=== PATIENT | male | born 2000 | race Caucasian/White ===

== ENCOUNTER 2020-12-26 12:02 | Emergency (ER) | payer OTHER, SELFPAY ==
--- NOTE | 2020-12-26 12:04 | ED.UPPEXIN ---
HPI - Extremity Injury (Upper) General Chief Complaint: Extremity Injury, Upper Stated Complaint: left shoulder pain Time Seen by Provider: 12/26/20 12:06 Source: patient and RN notes reviewed History of Present Illness HPI narrative: Patient is a 20-year-old male who presents the urgent care with complaints of left shoulder pain. Patient states that his pain started 7 days ago and he noticed the rash approximately 3 days ago. Patient denies of any injury or trauma to the shoulder or arm. Patient states that it is burning and radiating all the way down the left arm. Patient has used hydrocortisone cream to the rash. No other acute complaints. No acute distress noted. Patient aware of the plan of care. Some parts of this dictation were generated by voice recognition software and may contain typographical and/or grammatical inaccuracies. Related Data Allergies Allergy/AdvReac Type Severity Reaction Status Date / Time No Known Allergies Allergy Verified 12/26/20 12:16 Review of Systems Review of Systems: CONSTITUTIONAL: Denies fever, chills, or sweats. EYES: Denies visual changes, redness, or discharge. ENT: Denies rhinorrhea, congestion, sore throat, or otalgia. CARDIOVASCULAR: Denies chest pain, palpitations, or edema. RESPIRATORY: Denies cough or dyspnea. GASTROINTESTINAL: Denies abdominal pain, nausea, vomiting, or diarrhea. GENITOURINARY: Denies dysuria or hematuria. SKIN: Reports a painful itchy rash to the left arm MUSCULOSKELETAL: Reports of left shoulder pain rating down the left arm NEUROLOGIC: Denies headache, numbness, or weakness. All other systems reviewed are negative, except as documented in HPI. PMFSH Comments At the time of my signature, I reviewed and agree with the nursing past medical, surgical, social, and family history. There is no relevant family history pertinent to the patient complaint. Exam Narrative: GENERAL: This is a well-nourished, well-developed patient, in no apparent distress. HEAD: normocephalic, atraumatic. EYES: PERRL. Sclera clear/white. Vision is grossly intact. EARS: External ears normal NOSE: External nose normal with no obvious nasal discharge, nares without redness, no rhinorrhea. THROAT: Mucous membranes moist NECK: Neck supple CARDIOVASCULAR: Regular rate and rhythm without murmurs, gallops, or rubs. RESPIRATORY: Clear to auscultation. Breath sounds equal bilaterally. No wheezes, rales, or rhonchi. SKIN: Vesicular dermatitis, new areas and dried areas, diffuse to the left inner arm NEURO: awake, alert, and oriented to person, place and time. There were no obvious focal neurologic abnormalities. EXTREMITIES: No clubbing, cyanosis, or edema. Course Vital Signs Vital signs: Vital Signs Temperature 98.8 F 12/26/20 12:08 Pulse Rate 73 12/26/20 12:08 Respiratory Rate 16 12/26/20 12:08 Blood Pressure 143/70 H 12/26/20 12:08 Pulse Oximetry 100 12/26/20 12:08 Temperature 98.8 F 12/26/20 12:17 Pulse Rate 73 12/26/20 12:17 Respiratory Rate 16 12/26/20 12:17 Blood Pressure 143/70 H 12/26/20 12:17 Pulse Oximetry 100 12/26/20 12:17 Reviewed-patient is informed that they may have pre-hypertension or hypertension based on a blood pressure reading in the department. I recommend the patient call the primary care provider listed on their discharge instructions or a physician of their choice this week to arrange follow-up for further evaluation of possible pre-hypertension or hypertension. MDM - Extremity Injury (Upper) MDM Narrative Medical decision making narrative: Advised the patient to complete the antiviral regimen as prescribed. Make sure you are eating and drinking with the medication to avoid nausea or vomiting. If you notice new areas of the rash after the 7-day regimen, obtain the refill of the medication and take for another 7 days. May continue to use hydrocortisone or antiitch cream as needed. Use cool wash rags for comfort. May use Tylenol
[2020-12-26 12:08] VITALS: BP 143/70; PULSE 73; RESP 16; TEMP 37.1; O2SAT 100
[2020-12-26 12:17] VITALS: BP 143/70; PULSE 73; RESP 16; TEMP 37.1; O2SAT 100
== END 2020-12-26 12:29 | disposition home or self-care (01) ==
PROVIDERS: Emergency Provider Nurse Practitioner Family; PCP Pediatrics
DX: B02.9 Zoster without complications (principal)
CPT/HCPCS: 99203; G0463

== ENCOUNTER 2021-10-14 09:39 | Emergency (ER) | payer OTHER, SELFPAY ==
--- NOTE | ~2021-10-14 | XR_ITS ---
EXAMINATION: XR ankle RT min 3V INDICATION: Right ankle pain TECHNIQUE: Four views of the right ankle are obtained. COMPARISON: None available FINDINGS: There is no fracture, dislocation, or subluxation. The bones and joint spaces are normal. T here is lateral soft tissue swelling of ankle. IMPRESSION: 1. Ankle soft tissue swelling without acute osseous abnormality. Reviewed, dictated and finalized at location B.
[2021-10-14 09:42] VITALS: BP 133/82; PULSE 84; RESP 18; TEMP 37.1; O2SAT 100
--- NOTE | 2021-10-14 10:08 | ED.LOWEXIN ---
HPI - Extremity Injury (Lower) General Chief Complaint: Extremity Injury, Lower Stated Complaint: rt ankle injury Time Seen by Provider: 10/14/21 09:55 Source: patient Mode of arrival: ambulatory Limitations: no limitations History of Present Illness HPI Narrative: 21 y/o male presented for c/o right ankle pain and swelling after injury last night. Pain to the lateral aspect of the ankle. He jumped off of a boat landing on the ground twisting the ankle inverting the foot. Took tylenol last night. Related Data Allergies Allergy/AdvReac Type Severity Reaction Status Date / Time No Known Allergies Allergy Verified 12/26/20 12:16 Review of Systems Review of Systems: CONSTITUTIONAL: Denies body aches, fever, chills CARDIOVASCULAR: Denies chest pain, palpitations, or edema. RESPIRATORY: Denies cough or dyspnea. SKIN: Denies rash, itching, or wounds. MUSCULOSKELETAL: Reports right ankle pain NEUROLOGIC: Denies headache, numbness, tingling, or weakness. All systems reviewed & are unremarkable except as noted in HPI and below PMFSH Comments At time of signature, I have reviewed and agree with nursing past medical, surgical, social and family history unless otherwise noted. Please see nursing chart for further information. There is no relevant family history pertinent to the presenting complaint Exam Narrative: GENERAL: Well-appearing CHEST: Speaks in full sentences. No respiratory distress. HEART: Regular rate and rhythm. Normal and equal peripheral pulses. EXTREMITIES: Right lateral ankle with moderate swelling and bruising, tender to palpation; foot has normal strength and sensation, limited range of motion No open wounds or obvious deformity; pulse palpable and equal bilaterally, skin warm, dry, pink. Capillary refill less than 3 seconds. SKIN: Warm, dry, no rash. NEURO: Alert and oriented x3. PSYCH: Normal mood and affect Course Course Emergency Course: Patient is aware of diagnosis, understands and agrees to treatment plan. Anticipatory guidance given. Patient agrees to follow-up as directed and is aware of reasons to seek care at the emergency department. Portions of this record may have been created with voice recognition software Level of Care: Express Care Visit Vital Signs Vital signs: Vital Signs Temperature 98.7 F 10/14/21 09:42 Pulse Rate 84 10/14/21 09:42 Respiratory Rate 18 10/14/21 09:42 Blood Pressure 133/82 10/14/21 09:42 Pulse Oximetry 100 10/14/21 09:42 Oxygen Delivery Room Air 10/14/21 09:42 Temperature 98.7 F 10/14/21 09:42 Pulse Rate 84 10/14/21 09:42 Respiratory Rate 18 10/14/21 09:42 Blood Pressure 133/82 10/14/21 09:42 Pulse Oximetry 100 10/14/21 09:42 Oxygen Delivery Room Air 10/14/21 09:42 Reviewed Procedures Orthopedic Splinting/Casting right ankle: Lower Extremity Immobilizer: Johny wrap Other Orthopedic Equipment: crutches MDM - Extremity Injury (Lower) MDM Narrative Medical decision making narrative: Result of x-ray reviewed with patient. Johny wrap applied, crutch training provided. Advised supportive measures and signs/symptoms to go to the ER. Pt is appropriate for outpt treatment and f/u. Differential Diagnosis Differential diagnosis: Likely ankle sprain and strain and ankle fracture Imaging Data Radiologist's impression: Patient: Edson Boswell : 2000 MR#: [id number] Age/Sex: 21 / M Acct:[id number] Loc: [facility]? ? ADM Date: 10/14/21Attending Dr: Ordering Physician: Akilah Sandoval APRN Date of Service: 10/14/21 Procedure(s): XR ankle RT min 3V Accession Number(s): [id number] cc: Akilah Sandoval APRN; TRAFFIC OPERATIONS MANAGER PHYSICIAN~ EXAMINATION: XR ankle RT min 3V INDICATION: Right ankle pain TECHNIQUE: Four views of the right ankle are obtained. COMPARISON: None available FINDINGS: There is no fracture, dislocation, or subluxation. The bones and joint spaces are normal. There is
== END 2021-10-14 10:28 | disposition home or self-care (01) ==
LOC: EXPBETH 09:41
PROVIDERS: Emergency Provider Nurse Practitioner Family; Referring Provider Emergency Medicine
DX: S93.401A Sprain of unspecified ligament of right ankle, initial encounter (principal); S96.911A Strain of unspecified muscle and tendon at ankle and foot level, right foot, initial encounter; X50.9XXA Other and unspecified overexertion or strenuous movements or postures, initial encounter
CPT/HCPCS: 73610; 99213; G0463